=== PATIENT | male | born 1965 | race Caucasian/White ===

== ENCOUNTER 2022-07-28 13:44 | Emergency (ER) | payer BC ==
[~2022-07-28] VITALS: Ht 180.3 cm; Wt 71.8 kg
[2022-07-28] MEDS ORDERED: CEPHALEXIN500 M1 PO (15:08)
[2022-07-28] MEDS ORDERED: PREDNISONE20 MG PO (15:08)
[2022-07-28 15:27] VITALS: BP 172/100; PULSE 78; TEMP 98.2
== END 2022-07-28 15:30 | disposition home or self-care (01) ==
LOC: COL.ER 13:44
DX: L29.9 Pruritus, unspecified (principal); F17.200 Nicotine dependence, unspecified, uncomplicated; Z28.310 Unvaccinated for COVID-19

== ENCOUNTER 2022-08-09 14:27 | Emergency (ER) | payer BC ==
[~2022-08-09] VITALS: Ht 180.3 cm; Wt 70.5 kg
[~2022-08-09 14:27] MED LIST: CEPHALEXIN500 M1 PO; PREDNISONE20 MG PO
[2022-08-09 14:36] VITALS: TEMP 98.8
[2022-08-09] MEDS ORDERED: PREDNISONE20 MG PO (15:27)
[2022-08-09 15:35] VITALS: BP 147/86; PULSE 90
== END 2022-08-09 15:36 | disposition home or self-care (01) ==
LOC: COL.ER 14:27
DX: R21 Rash and other nonspecific skin eruption (principal); F17.210 Nicotine dependence, cigarettes, uncomplicated; Z28.310 Unvaccinated for COVID-19